=== PATIENT | female | born 2000 ===

== ENCOUNTER 2022-07-30 15:44 | Emergency (ER) | payer OTHER, SELFPAY ==
--- NOTE | ~2022-07-30 | XR_ITS ---
EXAMINATION: XR ABDOMEN KUB CLINICAL INDICATION: Constipation COMPARISON: None available. TECHNIQUE: AP view of the abdomen. FINDINGS: Mild stool burden throughout the colon. The bowel gas pattern is normal with no evidence of ileus or obstruction. No unusual soft tissue calcifications are noted. The bones are unremarkable. XR/XR KUB IMPRESSION: Moderate stool retention.
[2022-07-30 16:36] VITALS: BP 125/67; PULSE 70; RESP 20; TEMP 36.7; O2SAT 97; BMI 21.5
--- NOTE | 2022-07-30 16:43 | ED.GENADULT ---
HPI - General Adult General Chief complaint: Abdominal Pain Stated complaint: bathroom issues/abd/headaches Related Data Allergies Allergy/AdvReac Type Severity Reaction Status Date / Time No Known Allergies Allergy Verified 07/30/22 16:40 PMFSH Social History Social History Advance Directives: No Advance Directives Information Provided: No Physical Exam ED Vital Signs: Vital Signs - 24 hr 07/30/22 16:36 Temperature 98.0 F Pulse Rate 70 Respiratory Rate 20 Blood Pressure 125/67 Pulse Oximetry 97 Oxygen Delivery Method Room Air BMI result Body Mass Index 21.5 Course Course Course Narrative: RME; 21 yold female presents to the ED for constipation for months, dysuria, possible hemmhoirds. Patient weel appearing. KUB, UA, and ur preg ordered Discharge Plan Discharge Clinical Impression: Vaginal bleeding Patient Disposition: Elopement Interventions: ED Discharge Assessment Last Done: 07/30/22 20:35 Discharge Date/Time: 07/30/22 20:36
== END 2022-07-30 20:36 | disposition left against medical advice (07) ==
PROVIDERS: Emergency Provider Emergency Medicine
DX: N93.9 Abnormal uterine and vaginal bleeding, unspecified (principal); K59.00 Constipation, unspecified; R51.9 Headache, unspecified
CPT/HCPCS: 74018; 99282; 99283